=== PATIENT | female | born 1950 | race Caucasian/White ===

== ENCOUNTER → 2017-01-23 | Outpatient (CLI) | payer MEDICARE, OTHER ==
[~2017-01-23] MED LIST: ADVAIR 2501 DISK W/D PO; ALBUTEROL17 GM INH; ALPRAZOLAM PO; COREG PO; FOSAMAX PO; HCTZ PO; LISINOPRIL PO; NEXIUM PO; PROZAC PO; VICODIN PO
--- NOTE | ~2017-01-23 | MY29 ---
[facility] A Service of [facility] & [facility] RADIOLOGY TEXT RESULTS PATIENT: SALOMÓN RIVERA LOCATION: [facility] : 54 UNIT #: [id number] AGE: [address]: EMILY FRANCO APRN SEX: F ORDER DR: [id number] [facility] [address] [place], [place] [address] [id number] O MR#: [id number] Acc #: [id number] NAME: SALOMÓN RIVERA : 1950 SEX: F STUDY DATE/TIME: 01/23/2017 15:30 UNIT: [facility] ROOM: STUDY DESCRIPTION: MY ADRI SCREENING W/ CAD BILAT Attending Physician: Emily Franco A.P.R.N. Ordering Physician: Emily Franco A.P.R.N. Primary Care Physician: Chris Valentin M.D. MEDICAL IMAGING REPORT This report is preliminary unless electronic signature is present EXAM Bilateral digital screening mammogram with CAD 01/23/2017 INDICATIONS 66-year-old female for routine screening. No reported problems and no personal or family history of breast cancer. No surgeries. TECHNIQUE CC and MLO views of the breast were obtained and reviewed with an FDA approved CAD device' COMPARISON: 06/23/15, 07/10/13, 03/05/2012 FINDINGS Breast parenchyma composed of scattered fibroglandular densities and unchanged. There is no new dominant nodule, mass or suspicious clustered microcalcifications. There are benign calcifications and benign intramammary nodes. IMPRESSION 1. Benign screening mammogram 1 year followup recommended. Patients over the age of 40 are entered into a reminder system with target due date for the next mammogram. A result letter will also be sent to the patient. BIRADS: 2 - benign findings Dictated by... Danny Wilkins M.D. THIS IS AN ELECTRONICALLY VERIFIED REPORT [facility] A Service of [facility] & [facility] RADIOLOGY TEXT RESULTS PATIENT: SALOMÓN RIVERA LOCATION: [facility] : 54 UNIT #: [id number] AGE: [address]: EMILY FRANCO APRN SEX: F ORDER DR: Danny Wilkins M.D. at 01/24/2017 6:06 PM LATOYA/tiffany TD: 01/24/2017 13:38 JOB #: [id number] MEDICAL IMAGING REPORT Page 1 of 1 COPY
== END | disposition home or self-care (01) ==
LOC: CWCC 15:14
DX: Z12.31 Encounter for screening mammogram for malignant neoplasm of breast (principal)
CPT/HCPCS: G0202